=== PATIENT | male | born 1995 | race Caucasian/White ===

== ENCOUNTER 2017-07-28 23:51 | Emergency (ER) | payer BC, OTHER ==
[2017-07-29 00:01] VITALS: BP 123/77; PULSE 96; RESP 20; TEMP 98.2; O2SAT 97
--- NOTE | 2017-07-29 00:54 | C.PDOC ---
History Of Present Illness 22 year old male presents to the ED with complaints of cough, runny nose, and body aches for two days. Patient reports one episode of vomiting and denies diarrhea, fever, GI bleeding, or recent travel. Time Seen by Provider: 07/29/17 00:07 Chief Complaint (Nursing): Flu-like Symptoms History Per: Patient History/Exam Limitations: no limitations Onset/Duration Of Symptoms: Days (2 days) Current Symptoms Are (Timing): Still Present Location Of Pain: Diffuse Myalgias Sick Contacts (Context): None Associated Symptoms: Cough, Vomiting. denies: Fever, Diarrhea Recent travel outside of the [place]: No Past Medical History Reviewed: Historical Data, Nursing Documentation, Vital Signs Vital Signs: Last Vital Signs Temp 98.2 F 07/28/17 23:57 Pulse 96 H 07/28/17 23:57 Resp 20 07/29/17 00:57 BP 123/77 07/28/17 23:57 Pulse Ox 97 07/29/17 06:32 - [facility] Procedures APPLICATION OF SPLINT (01/10/15) Family History: States: Unknown Family Hx - Social History Hx Tobacco Use: No Hx Alcohol Use: Yes Hx Substance Use: Yes - Immunization History Hx Tetanus Toxoid Vaccination: No Hx Influenza Vaccination: No Hx Pneumococcal Vaccination: No Review Of Systems Constitutional: Positive for: Other (generalized body aches ). Negative for: Fever, Chills ENT: Positive for: Nose Discharge Cardiovascular: Negative for: Chest Pain, Palpitations Respiratory: Positive for: Cough. Negative for: Shortness of Breath Gastrointestinal: Positive for: Vomiting. Negative for: Abdominal Pain, Diarrhea Physical Exam - Physical Exam Appears: Non-toxic, No Acute Distress Skin: Warm, Dry, No Rash Head: Atraumatic, Normacephalic Eye(s): bilateral: Normal Inspection, PERRL, EOMI Ear(s): Bilateral: Normal Nose: Other (nasal congestion ) Oral Mucosa: Moist Throat: Normal, No Erythema, No Exudate Neck: Supple Chest: Symmetrical, No Deformity Cardiovascular: Rhythm Regular, No Murmur Respiratory: Normal Breath Sounds, No Rales, No Rhonchi, No Wheezing Gastrointestinal/Abdominal: Soft, No Tenderness, No Distention, No Guarding, No Rebound Neurological/Psych: Oriented x3, Normal Motor, Normal Sensation Gait: Steady ED Course And Treatment O2 Sat by Pulse Oximetry: 97 (RA) Pulse Ox Interpretation: Normal Progress Note: Patient was given Motrin, Zofran, and predniSONE. Disposition - Disposition Referrals: Jovanni Alvarez MD [Non-Staff] - Disposition: HOME/ ROUTINE Disposition Time: 00:53 Condition: GOOD Additional Instructions: Follow up with the medical doctor within 1- 2 days without fail. return if worsened Prescriptions: Ibuprofen [Motrin] 600 mg PO TID #21 tab Ondansetron ODT [Zofran ODT] 1 odt PO BID PRN #10 odt PRN Reason: Nausea/Vomiting predniSONE [Prednisone] 10 mg PO BID #10 tab Instructions: Viral Syndrome (ED) Forms: [employer] ([place]), School Excuse - Clinical Impression Clinical Impression: Influenza-like illness - PA / IMPORT AND EXPORT CLERK / Resident Statement MD/DO has reviewed & agrees with the documentation as recorded. - Scribe Statement The provider has reviewed the documentation as recorded by the Scribe Bridgette Foreman All medical record entries made by the Scribe were at my direction and personally dictated by me. I have reviewed the chart and agree that the record accurately reflects my personal performance of the history, physical exam, medical decision making, and the department course for this patient. I have also personally directed, reviewed, and agree with the discharge instructions and disposition.
== END 2017-07-29 00:57 | disposition home or self-care (01) ==
LOC: C.ER 23:51
DX: J11.1 Influenza due to unidentified influenza virus with other respiratory manifestations (principal)